=== PATIENT | female | born 1985 | race Caucasian/White ===

== ENCOUNTER → 2023-10-14 11:26 | Outpatient (REF) | payer OTHER, SELFPAY | LOC: PAVMRI 11:26 | PROVIDERS: ATTENDING PHYSICIAN Physician Assistant | DX: M25.511 Pain in right shoulder (principal) | CPT/HCPCS: 73221 ==

== ENCOUNTER 2025-05-06 20:13 | Emergency (ER) | payer OTHER, SELFPAY ==
[2025-05-06 20:15] VITALS: BP 120/78
[2025-05-06 20:52] LABS: Hematocrit 37.9 % (37.0-47.0); Hemoglobin 12.9 g/dL (12.0-16.0); Mean Corp Hgb Conc. 34.0 g/dL (33.0-37.0); Mean Corpuscular Volume 84.8 fL (81.0-99.0); Nucleated Red Blood Cells % 0 %; Platelet Count 209 10^3/uL (130-400); Red Cell Dist. Width 12.1 % (11.5-14.5)
[2025-05-06 20:59] LABS: HCG, Serum Qualitative Screen Negative
[2025-05-06 21:08] LABS: ALT (SGPT) 15 U/L (0-35); AST (SGOT) 19 U/L (14-36); Albumin 4.6 g/dl (3.5-5.0); Alkaline Phosphatase 53 U/L (38-126); Blood Urea Nitrogen 8 mg/dl (7-17); Calcium 9.1 mg/dl (8.4-10.2); Carbon Dioxide 29 mmol/L (22-30); Chloride 103 mmol/L (98-107); Glucose 91 mg/dl (70-99); Potassium 3.6 mmol/L (3.5-5.1); Sodium 139 mmol/L (135-145); Total Protein 6.8 g/dl (6.3-8.2); eGFR > 60.00
--- NOTE | 2025-05-06 23:14 | ED.GENMED ---
History of Present Illness
General
Chief Complaint: Facial Problem
Source: patient and spouse
Exam Limitations: none
Time Seen by Provider: 05/06/25 22:40
Nursing documentation reviewed up to this point in time: agreed with
History of Present Illness
History of Present Illness:
The patient is a 39-year-old female who presented with concerns regarding facial asymmetry, specifically affecting the movement of her left eyebrow/left forehead. Symptoms began this evening.
She has a history of infantile/childhood seizures and noted strokes as an , for which no definitive cause was identified. The patient reports having had a cold recently but denies any changes in sensation or the perception of events.
No recent seizures have occurred since age [age], and she experienced grand mal seizures in the past. She was previously on anti-seizure medication (tegretol) but has since been weaned off since age 17.
She had been following with neurologists at [facility] but discharged at age 17. Last seizure at age 9.
She did note mild headache a-2 days ago, has since resolved. No eye pain nor tearing. No vision difficulty.
No rash.
No history of similar episodes in the past.
LMP-1 week ago
She takes no medications
She does note having history of chickenpox as a child
Past History
Past History
ED Past Medical History: Seizures (Infantile seizures)
ED Past Surgical History: None
Social History
Tobacco: Non-smoker
Alcohol: None
Personal:
Living: with family
Employment: Employed (transportation officer, [employer])
Family History
Family History: Other (Noncontributory)
Phy Exam
Physical Exam
Physical Exam:
GENERAL: 39 yo female appears her stated age, bright and alert, pleasant, in NAD
EYE: pupils equal and reactive. Extraocular muscles intact. anicteric
NECK: Supple, nontender, no meningismus, no significant adenopathy.
ENT: posterior pharynx is clear, oral mucosa is moist. TM clear b/l, nares patent.
CARDIAC: Regular rate and rhythm. no murmur.
LUNGS: Clear breath sounds bilaterally, no acute respiratory distress, no wheezes/rales/rhonchi
ABDOMEN: Soft, nondistended, without focal tenderness, normoactive BS.
NEUROLOGICAL: Alert and oriented x3, There is moderate left forehead droop and inability to raise left eyebrow but no difficulty closing or opening eyes. No lower facial muscular asymmetry. Gross sensation is intact. Gait is johnson and steady.
Motor strength of extremities is full and equal bilaterally
SKIN: Warm and dry, normal color, skin intact. No rash.
MUSCULOSKELETAL: No C/C/E. peripheral pulses are full and equal b/l. No palpable tenderness.
PSYCH: Normal and appropriate interaction.
Course
Orders/Labs/Results
Orders:
Orders
05/06/25 20:24
CT Head W/o Iv Contrast Urgent
Comment: started 20min SPINNER HYDRAULIC
Reason For Exam: left eyebrow paralysis
05/06/25 20:25
Test Result ONCE
05/06/25 20:31
Complete Blood Count/With Diff Urgent
Comprehensive Metabolic Panel Urgent
HCG, Serum Qualitative Screen Urgent
Lyme Progressive Urgent
Comment: ADD ON
05/06/25 23:10
Add On- LAB Urgent
Tests Added?: Lyme progressive
05/06/25 23:13
Prednisone [Deltasone] 60 mg PO NOW STA
05/06/25 23:13
Valacyclovir HCl [Valtrex] 1,000 mg PO NOW STA
Abnormal Lab Results
05/06/25
20:31
Absolute Lymphs (auto) 4.0 H 10^3/uL
(1.2-3.4)
Absolute Monos (auto) 0.8 H 10^3/uL
(0.1-0.6)
05/06/25 20:31
05/06/25 20:31
Vital Signs
Initial and Last Documented VS:
Initial Vital Signs
Temp Pulse Resp BP Pulse Ox
98 F 85 18 120/78 97
05/06/25 20:15 05/06/25 20:15 05/06/25 20:15 05/06/25 20:15 05/06/25 20:15
Last Documented Vital Signs
Temp Pulse Resp BP Pulse Ox
98 F 85 18 120/78 97
05/06/25 20:15 05/06/25 20:15 05/06/25 20:15 05/06/25 20:15 05/06/25 20:15
MDM/Problems Addressed
Differential Diagnosis Includes:
The Differential Diagnosis includes, in no particular order and is not limited to:
- [place] Palsy
- Ischemic Stroke
- Hemorrhagic Stroke
- Lyme Disease
- Herpes Zoster (Shingles)
- Multiple Sclerosis
- Transient Ischemic Attack
- Sinusitis
- Space-occupying Brain Lesion
- Facial nerve tumor
MDM/Problems Addressed:
Acute muscular weakness of left eyebrow/left forehead
Focal weakness of left brow, most consistent with acute, mild, Moreno's palsy.
Due to prior history of seizures and reported prior history of strokes as an , CT of the head obtained which is unremarkable. No evidence of previous strokes. No hemorrhage nor mass effect.
Labs are unremarkable.
Will add Lyme titer.
Will plan to initiate a course of prednisone and due to prior history of chickenpox as a child, patient is potentially at risk for herpes zoster related Moreno's palsy thus will initiate a 1 week course of Valtrex.
There is no difficulty closing eye thus eye protection at this point is not indicated.
Prompt follow-up with PCP for recheck.
Chronic conditions affecting care:
History of childhood seizures and reported history of strokes as an
*Radiology
Radiology exam reviewed: radiology read reviewed (CT of the head is unremarkable)
*Pulse Oximetry
SaO2: 97
Oxygen Mode of Delivery: Room air
Patient hypoxic: no
*Critical Care Note
Total Time (30-74mins, 75-104mins- exclusive of procedures): Not Applicable
ED Attending Note
-
Portions of this chart may have been created with voice recognition software.� Occasional wrong word or��sound alike� substitutions may have occurred due to the inherent limitations of voice recognition software.
Discharge Plan
Departure
Patient Disposition: Home (Routine Discharge)
Date of Disposition: 05/06/25
Time of Disposition: 23:34
Patient with high blood pressure during this ER visit?: No
Condition: Good
Discharge Problem:
ACUTE BELLS PALSY
Instructions: Moreno's Palsy (DC)
Prescriptions:
New
prednisone 20 mg tablet
60 mg PO DAILY 7 Days Qty: 21 0RF
valacyclovir [Valtrex] 1 gram tablet
1,000 mg PO TID Qty: 20 0RF
Referrals:
Nora Hartley DO [Family Provider, Family Practice] - Call in 1-3 days for appt
Interventions
Interventions:
*Risk Screen - Suicide Last Done: 05/06/25 20:15
*General Assessment Last Done: 05/06/25 20:15
*Neglect/Abuse Screening Last Done: 05/06/25 20:15
*ED- Fall Risk Assessment Last Done: 05/06/25 22:48
*ED COVID-19 Vaccine History Last Done: 05/06/25 22:48
*ED Influenza Vaccine History Last Done: 05/06/25 22:48
ED- Neurological Assessment Last Done: 05/06/25 22:47
ED-Skin Assessment Last Done: 05/06/25 22:48
Discharge Date and Time
Print Language: [place]
[2025-05-06] MEDS: DELTASONE 60 MG PO (23:32)
[2025-05-06] MEDS: VALTREX 1000 MG PO (23:33)
[2025-05-06 23:44] VITALS: BP 106/62
[2025-05-09 15:38] LABS: Lyme Antibody Screen, EIA Negative (Negative)
== END 2025-05-06 23:45 | disposition home or self-care (01) ==
LOC: EMR 20:13
PROVIDERS: Student in an Organized Health Care Education/Training Program; EMERGENCY PHYSICIAN Emergency Medicine; FAMILY PHYSICIAN Family Medicine
DX: G51.0 Bell's palsy (principal); G40.409 Other generalized epilepsy and epileptic syndromes, not intractable, without status epilepticus; Z86.73 Personal history of transient ischemic attack (TIA), and cerebral infarction without residual deficits
CPT/HCPCS: 99284; 70450; 80053; 84703; 85025; 86618